=== PATIENT | male | born 1965 | race Caucasian/White ===

== ENCOUNTER 2024-01-08 11:10 | Outpatient (REF) | payer OTHER, SELFPAY ==
--- NOTE | ~2024-01-08 | XR_ITS ---
EXAMINATION: XR FOOT, RIGHT CLINICAL INFORMATION: Right foot wound. Patient reports ulcer on bottom of the foot COMPARISON: None available. TECHNIQUE: AP, lateral, and oblique views of the right foot. FINDINGS: The reported soft tissue ulcer is not conspicuous. Period there is a posterior calcaneal spur. Bones joints and soft tissues are otherwise unremarkable. XR/XR foot RT 2V IMPRESSION: 1. No radiographic evidence of osteomyelitis. Reported soft tissue ulcer not conspicuous 2. Posterior calcaneal spur.
== END 2024-01-08 11:11 | disposition home or self-care (01) ==
LOC: HO.XRAY 11:10
PROVIDERS: PCP Student in an Organized Health Care Education/Training Program; Visit Provider Surgery
DX: L97.519 Non-pressure chronic ulcer of other part of right foot with unspecified severity (principal)
CPT/HCPCS: 73620

== ENCOUNTER → 2024-08-25 09:20 | Outpatient (BNV) | payer OTHER, SELFPAY | PROVIDERS: PCP Student in an Organized Health Care Education/Training Program; Visit Provider Radiology Diagnostic Radiology | DX: L97.519 Non-pressure chronic ulcer of other part of right foot with unspecified severity (principal) | CPT/HCPCS: 73630 ==

== ENCOUNTER 2025-05-27 11:30 | Outpatient (RCR) | payer OTHER, SELFPAY ==
[2024-05-04 07:25] LABS: MANUAL DIFF FLAG NO
[2024-05-04 07:43] LABS: Hematocrit 41.2 % (42.0-52.0); Hemoglobin 14.2 g/dl (14.0-18.0); Imm Gran Abs Auto 0.03 X10*3/uL (0.00-0.03); Imm Gran Pct Auto 0.4 % (0.0-0.4); Lymphocytes Absolute Auto 2.0 X10*3/uL (1.2-4.9); Mean Corpuscular HGB Conc 34.5 g/dl (31.0-36.0); Mean Corpuscular Hemoglobin 30.0 pg (27.0-33.0); Mean Corpuscular Volume 87.1 fL (80.0-98.0); NRBC Abs Auto 0.000 X10*3/uL (0.0-0.012); NRBC Pct Auto 0.0 /100WBC (0.0-0.2); Platelet Count 249 X10*3/uL (160-400); Red Blood Count 4.73 X10*6/uL (4.60-5.80); White Blood Count 7.1 X10*3/uL (4.8-10.8)
[2024-05-04 07:52] LABS: Total Hemoglobin (HGBA1C) 3527.6148 umol/L
[2024-05-04 08:02] LABS: Anion Gap 13 (12-20); Blood Urea Nitrogen 17 mg/dL (9-16); Calcium 10.2 mg/dL (8.4-10.2); Carbon Dioxide 25 mmol/L (22-29); Chloride 102 mmol/L (96-108); Estimated Glomerular Filt Rate > 60; Potassium 4.4 mmol/L (3.3-5.1); Sodium 136 mmol/L (135-145)
[2024-05-04 08:03] LABS: Prealbumin 19.0 mg/dL (20-40)
--- NOTE | ~2025-05-27 | XR_ITS ---
EXAMINATION: XR FOOT 3 OR MORE VIEWS RIGHT HISTORY: non healing wound right foot COMPARISON: Comparison is made with the prior examination dated 01/08/2024. FINDINGS: Three views of the right foot are submitted. Osseous mineralization is normal. No lytic lesion is identified. There is no fracture or dislocation. The joint spaces are preserved. There is soft tissue ulceration at the plantar aspect of the foot at the level of the MCP joints. XR/XR foot RT min 3V IMPRESSION: Soft tissue ulcer at the plantar aspect of the foot at the level of the MCP joints. No plain film evidence of osteomyelitis. If this is a clinical concern, three-phase bone scan or MRI could be performed. Electronically signed by: Robbie Sun MD 08/30/2024 07:27 AM DUN[facility]
== END 2025-05-27 16:33 | disposition home or self-care (01) ==
LOC: HO.WCC 11:30
PROVIDERS: Surgery; PCP Student in an Organized Health Care Education/Training Program; Visit Provider Surgery Vascular Surgery
DX: L84 Corns and callosities (principal); E11.40 Type 2 diabetes mellitus with diabetic neuropathy, unspecified; E11.65 Type 2 diabetes mellitus with hyperglycemia; Z09 Encounter for follow-up examination after completed treatment for conditions other than malignant neoplasm; Z86.31 Personal history of diabetic foot ulcer
CPT/HCPCS: 10060; 11042; 11043; 29445; 36415; 73630; 80048; 83036; 84134; 85025; 85652; 86140; 87070; 87073; 87205; 97597; 99211; 99212